=== PATIENT | female | born 1940 | race Caucasian/White ===

== ENCOUNTER → 2016-09-24 | Outpatient (CLI) | payer OTHER, MEDICARE | LOC: FIMAGING 15:21 | DX: Z12.31 Encounter for screening mammogram for malignant neoplasm of breast (principal) | CPT/HCPCS: G0202 ==

== ENCOUNTER → 2017-01-30 | Outpatient (CLI) | payer OTHER, MEDICARE | LOC: CIMAGING 16:48 | PROVIDERS: ATTEND Physician Assistant | DX: R22.1 Localized swelling, mass and lump, neck (principal) | CPT/HCPCS: 76536-PO ==

== ENCOUNTER → 2017-09-26 | Outpatient (CLI) | payer OTHER, MEDICARE | LOC: FIMAGING 08:37 | PROVIDERS: ATTEND Obstetrics & Gynecology Gynecology | DX: Z12.31 Encounter for screening mammogram for malignant neoplasm of breast (principal) ==

== ENCOUNTER → 2018-01-20 | Outpatient (CLI) | payer OTHER, MEDICARE | LOC: BHFA 14:30 | PROVIDERS: ATTEND Internal Medicine Cardiovascular Disease | DX: I48.91 Unspecified atrial fibrillation (principal) ==

== ENCOUNTER 2018-05-05 10:08 | Emergency (ER) | payer OTHER, MEDICARE ==
[2018-05-05] MEDS ORDERED: NS 1,000 ML IV ONE (10:44)
[2018-05-05 10:51] LABS: PLATELET COUNT 230 10^3/uL (150-400)
--- NOTE | 2018-05-05 10:52 | EDPHY ---
H & P Stated Complaint: TRANSIENT MEMORY DEFICITS LAST NIGHT AT 8PM LASTING FEW MINUTES Time Seen by Provider: 05/05/18 10:39 HPI/ROS: CHIEF COMPLAINT: TIA HISTORY OF PRESENT ILLNESS: The patient is a 78-year-old female with a history of lymphoma, chronic atrial fibrillation on Coumadin and previous TIAs. She thinks she had a TIA last night. She states that while she was doing the laundry she had trouble thinking clearly about where the clothes went. She then had trouble understanding had to choose a channel on the television. Her symptoms resolved after 5 or 10 min. She states that this is similar to previous TIA episodes. She was not concerned but today went to get a stress test with Dr. Fraga is office. They recommended she come to the ER. She was planning to get a neck your stress test because she has had easy fatigability with exertion over the last several months despite changes in her medications. She denies chest pain or shortness of breath today. She did not have any weakness or numbness or paralysis. No slurred speech. Severity: Moderate Modifying factors: Resolved REVIEW OF SYSTEMS: Constitutional: denies: chills, fever, recent illness, recent injury EENTM: denies: blurred vision, double vision, nose congestion Respiratory: denies: cough, shortness of breath Cardiac: denies: chest pain, irregular heart rate, lightheadedness, palpitations Gastrointestinal/Abdominal: denies: abdominal pain, diarrhea, nausea, vomiting, blood streaked stools Genitourinary: denies: dysuria, frequency, hematuria, pain Musculoskeletal: denies: joint pain, muscle pain Skin: denies: lesions, rash, jaundice, bruising Neurological: See HPI denies: headache, numbness, paresthesia, tingling, dizziness, weakness Hematologic/Lymphatic: denies: blood clots, easy bleeding, easy bruising Immunologic/allergic: denies: HIV/AIDS, transplant 10 systems reviewed and negative except as noted EXAM: GENERAL: Well-appearing, well-nourished and in no acute distress. HEAD: Atraumatic, normocephalic. EYES: Pupils equal round and reactive to light, extraocular movements intact, sclera anicteric, conjunctiva are normal. ENT: TMs normal, nares patent, oropharynx clear without exudates. Moist mucous membranes. NECK: Normal range of motion, supple without lymphadenopathy or JVD. LUNGS: Breath sounds clear to auscultation bilaterally and equal. No wheezes rales or rhonchi. HEART: Regular rate and rhythm without murmurs, rubs or gallops. ABDOMEN: Soft, nontender, normoactive bowel sounds. No guarding, no rebound. No masses appreciated. BACK: No CVA tenderness, no spinal tenderness, step-offs or deformities EXTREMITIES: Normal range of motion, no pitting or edema. No clubbing or cyanosis. NEUROLOGICAL: Cranial nerves II through XII grossly intact. Normal speech, normal gait. 5/5 strength, normal movement in all extremities, normal sensation , normal reflexes PSYCH: Normal mood, normal affect. SKIN: Warm, dry, normal turgor, no visible rashes or lesions. Source: Patient, Old records Exam Limitations: No limitations - Personal History Current Tetanus Diphtheria and Acellular Pertussis (TDAP): Yes - Medical/Surgical History Hx Asthma: No Hx Chronic Respiratory Disease: No Hx Diabetes: No Hx Cardiac Disease: Yes Hx Renal Disease: No Hx Cirrhosis: No Hx Alcoholism: No Hx HIV/AIDS: No Hx Splenectomy or Spleen Trauma: No Other PMH: lymphoma, afib TIA'S - Family History Significant Family History: No pertinent family hx - Social History Smoking Status: Former smoker Alcohol Use: Sober Drug Use: None Constitutional: Initial Vital Signs Temperature (C) 36.5 C 05/05/18 10:13 Heart Rate 87 05/05/18 10:13 Respiratory Rate 18 05/05/18 10:13 Blood Pressure 165/96 H 05/05/18 10:13 O2 Sat (%) 97 05/05/18 10:13 O2 Delivery Mode Room Air Allergies/Adverse Reactions: erythromycin base [Erythromycin Base] Allergy (Verified 12/29/15 14:10) Hives Penicillins Allergy (Verified 12/29/15 14:10) Scallops & Clams Allergy (Uncoded 12/29/15 14:10) Other-Enter Comments Home Medications: Medication Instructions Recorded Atorvastatin Calcium [Lipitor 20 20 mg PO DAILY 11/27/11 mg (RX)] Multivitamins [Multivitamin (OTC)] 1 tab PO DAILY 11/27/11 Warfarin Sodium [Coumadin (RX)] 7.5 mg PO DAILY 11/27/11 Metoprolol Succinate 05/05/18 Medical Decision Making - Diagnostics Imaging Results: Imaging Impressions Brain MRI 05/05/18 10:45 Impression: 1. Mild cerebral atrophy. 2. No acute infarct, acute hemorrhage, hydrocephalus, mass effect, or herniation. 3. A few nonspecific hyperintense T2/FLAIR signal abnormalities in the white matter of bilateral cerebral hemispheres. Differential diagnosis includes mild microvascular ischemic gliosis, versus less likely post-infectious/post- inflammatory sequela. 4. Mild sinusitis. Findings and recommendations discussed with Emergency Department physician, Dr. Buddy Raza at 1159 hours on May 05, 2018. Final report concurs with initial preliminary interpretation. Imaging: Discussed imaging studies w/ call or contact centre team leader Radiologist ED Course/Re-evaluation: 12:05 p.m. we discussed the patient's test results which are overall very reassuring. I suspect she did have a TIA. Her INRs therapeutic. She is rescheduled her stress test for next week. She is eager to go and declines further workup or testing. We discussed indications for returning. Differential Diagnosis: Partial list of the Differential diagnosis considered include but were not limited to; TIA, electrolyte disturbance, migraine, seizure and although unlikely based on the history and physical exam, I also considered trauma, infection. I discussed these differential diagnoses and the plan with the patient as well as the usual and expected course. The patient understands that the diagnosis is provisional and that in medicine we are not always correct and that further workup is often warranted. Usual and customary warnings were given. All of the patient's questions were answered. The patient was instructed to return to the emergency department should the symptoms at all worsen or return, otherwise to followup with the physician as we discussed. - Data Points Laboratory Results: Laboratory Results 05/05/18 10:20 05/05/18 10:20 05/05/18 05/05/18 05/05/18 10:54 10:20 10:20 WBC RBC Hgb Hct MCV MCH MCHC RDW Plt Count MPV Neut % (Auto) Lymph % (Auto) Hoke % (Auto) Eos % (Auto) Baso % (Auto) Nucleat RBC Rel Count Absolute Neuts (auto) Absolute Lymphs (auto) Absolute Monos (auto) Absolute Eos (auto) Absolute Basos (auto) Absolute Nucleated RBC Immature Gran % Immature Gran # PT 23.1 SEC H SEC (12.0-15.0) INR 2.04 H (0.83-1.16) APTT 33.0 SEC SEC (23.0-38.0) Sodium 139 mEq/L mEq/L (135-145) Potassium 4.3 mEq/L mEq/L (3.3-5.0) Chloride 101 mEq/L mEq/L (97-110) Carbon Dioxide 29 mEq/l mEq/l (22-31) Anion Gap 9 mEq/L mEq/L (8-16) BUN 17 mg/dL mg/dL (7-23) Creatinine 0.7 mg/dL mg/dL (0.6-1.0) Estimated GFR > 60 Glucose 91 mg/dL mg/dL (70-100) Calcium 9.6 mg/dL mg/dL (8.5-10.4) POC Troponin I 0.01 ng/mL ng/mL (0.00-0.08) 05/05/18 10:20 WBC 7.91 10^3/uL 10^3/uL (3.80-9.50) RBC 4.88 10^6/uL 10^6/uL (4.18-5.33) Hgb 16.4 g/dL H g/dL (12.6-16.3) Hct 48.9 % H % (38.0-47.0) MCV 100.2 fL H fL (81.5-99.8) MCH 33.6 pg pg (27.9-34.1) MCHC 33.5 g/dL g/dL (32.4-36.7) RDW 13.1 % % (11.5-15.2) Plt Count 230 10^3/uL 10^3/uL (150-400) MPV 12.4 fL H fL (8.7-11.7) Neut % (Auto) 60.3 % % (39.3-74.2) Lymph % (Auto) 25.4 % % (15.0-45.0) Hoke % (Auto) 11.6 % % (4.5-13.0) Eos % (Auto) 1.5 % % (0.6-7.6) Baso % (Auto) 0.8 % % (0.3-1.7) Nucleat RBC Rel Count 0.0 % % (0.0-0.2) Absolute Neuts (auto) 4.77 10^3/uL 10^3/uL (1.70-6.50) Absolute Lymphs (auto) 2.01 10^3/uL 10^3/uL (1.00-3.00) Absolute Monos (auto) 0.92 10^3/uL H 10^3/uL (0.30-0.80) Absolute Eos (auto) 0.12 10^3/uL 10^3/uL (0.03-0.40) Absolute Basos (auto) 0.06 10^3/uL 10^3/uL (0.02-0.10) Absolute Nucleated RBC 0.00 10^3/uL 10^3/uL (0-0.01) Immature Gran % 0.4 % % (0.0-1.1) Immature Gran # 0.03 10^3/uL 10^3/uL (0.00-0.10) PT INR APTT Sodium Potassium Chloride Carbon Dioxide Anion Gap BUN Creatinine Estimated GFR Glucose Calcium POC Troponin I Medications Given: Discontinued Medications Sodium Chloride (Ns) 1,000 mls @ 500 mls/hr IV EDNOW ONE PRN Reason: Protocol Stop: 05/05/18 12:43 Last Admin: 05/05/18 11:44 Dose: 1,000 mls Point of Care Test Results: Chemistry 05/05/18 10:54 POC Troponin I 0.01 ng/mL ng/mL (0.00-0.08) Departure - Departure Disposition: Home, Routine, Self-Care Clinical Impression: Transient cerebral ischemia Qualifiers: Transient cerebral ischemia type: unspecified Qualified Code(s): G45.9 - Transient cerebral ischemic attack, unspecified Condition: Fair Instructions: Transient Ischemic Attack (ED) Referrals: JENNIFER HERRERA [Primary Care Provider] - As per Instructions
[2018-05-05 10:53] LABS: INR 2.04 (0.83-1.16); PROTIME(PATIENT) 23.1 SEC (12.0-15.0)
[2018-05-05 12:22] VITALS: BP 140/71
== END 2018-05-05 12:22 | disposition home or self-care (01) ==
DX: G45.9 Transient cerebral ischemic attack, unspecified (principal); E86.9 Volume depletion, unspecified; I48.2 Chronic atrial fibrillation; Z79.01 Long term (current) use of anticoagulants; Z86.73 Personal history of transient ischemic attack (TIA), and cerebral infarction without residual deficits
CPT/HCPCS: 84484-PO

== ENCOUNTER 2018-05-07 16:26 | Emergency (ER) | payer OTHER, MEDICARE ==
--- NOTE | 2018-05-07 17:07 | EDPHY ---
H & P Stated Complaint: memory issue Time Seen by Provider: 05/07/18 16:37 HPI/ROS: CHIEF COMPLAINT: TIA HISTORY OF PRESENT ILLNESS: 78-year-old female with atrial fibrillation on Coumadin presents with a chief complaint of TIA. At 1400 today, she had some memory issues and could not remember where she was or where she was going. She continues to feel somewhat fussy, but her memory has improved. No weakness, numbness or change in speech. She feels that the symptoms are similar to prior episodes of TIAs. She was seen in this emergency department on 05/05/2018 for similar symptoms. MRI of the brain revealed no acute infarct. She feels that the episodes may be related to a new prescription for metoprolol. REVIEW OF SYSTEMS: complete 10 point ROS reviewed and is negative except for the noted elements in the HPI - Personal History Current Tetanus/Diphtheria Vaccine: Yes Current Tetanus Diphtheria and Acellular Pertussis (TDAP): Yes - Medical/Surgical History Hx Asthma: No Hx Chronic Respiratory Disease: No Hx Diabetes: No Hx Cardiac Disease: Yes Hx Renal Disease: No Hx Cirrhosis: No Hx Alcoholism: No Hx HIV/AIDS: No Hx Splenectomy or Spleen Trauma: No Other PMH: lymphoma, afib TIA'S - Social History Smoking Status: Former smoker - Physical Exam Exam: General Appearance: Alert, pleasant Eyes: Pupils equal and round, no conjunctival pallor or injection ENT, Mouth: Mucous membranes moist Neck: Normal inspection Respiratory: Lungs are clear to auscultation Cardiovascular: Irregularly irregular tachycardia, rate 100-110 Gastrointestinal: Abdomen is soft and nontender Neurological: Alert, oriented x3, cranial nerves II through XII intact, motor 5 /5, sensory intact to light touch, normal gait Skin: Warm and dry, no rash Extremities: Nontender, no pedal edema Psychiatric: Mood and affect normal Constitutional: Initial Vital Signs Temperature (C) 36.7 C 05/07/18 16:39 Heart Rate 115 H 05/07/18 16:39 Respiratory Rate 15 05/07/18 16:39 O2 Sat (%) 94 05/07/18 16:39 O2 Delivery Mode Room Air Allergies/Adverse Reactions: erythromycin base [Erythromycin Base] Allergy (Verified 12/29/15 14:10) Hives Penicillins Allergy (Verified 12/29/15 14:10) Scallops & Clams Allergy (Uncoded 12/29/15 14:10) Other-Enter Comments Home Medications: Medication Instructions Recorded Atorvastatin Calcium [Lipitor 20 20 mg PO DAILY 11/27/11 mg (RX)] Multivitamins [Multivitamin (OTC)] 1 tab PO DAILY 11/27/11 Warfarin Sodium [Coumadin (RX)] 7.5 mg PO DAILY 11/27/11 Metoprolol Succinate 05/05/18 Medical Decision Making - Diagnostics EKG Interpretation: EKG interpreted by me reveals atrial fibrillation, ventricular rate 102, no ST or T segment changes. Interpretation abnormal EKG ED Course/Re-evaluation: This patient presents with intermittent memory problems. Neurologic exam is normal and there are no concerning signs or symptoms suggestive of a TIA/CVA. Neuro imaging is not indicated today. The symptoms have been ongoing for some time. Recent MRI for similar sx was unremarkable. EKG reveals atrial fibrillation, ventricular rate 100-115. Patient encouraged to take metoprolol in ED, but declines, stating she will take metoprolol when she gets home. She has self-lowered her metoprolol dose to 25mg daily because she thinks it's causing memory issues. Declines admission. She will follow up with Dr. Moody in the office for cognitive testing. Differential Diagnosis: Altered mental status including but not limited to hypoglycemia, infectious process, electrolyte abnormality, head injury, TIA, CVA, and intoxicants. - Data Points Laboratory Results: Laboratory Results 05/07/18 16:52 05/07/18 16:52 Point of Care Test Results: Chemistry 05/07/18 17:10 POC Troponin I 0.00 ng/mL ng/mL (0.00-0.08) Departure - Departure Disposition: Home, Routine, Self-Care Clinical Impression: Memory problem Condition: Good Instructions: Additional Information Referrals: Alex Moody MD [Medical Doctor] - As per Instructions Brandyn Fraga MD [Medical Doctor] - As per Instructions (Call to make an appointment.)
[2018-05-07 17:13] LABS: PLATELET COUNT 230 10^3/uL (150-400)
[2018-05-07 17:26] LABS: INR 2.11 (0.83-1.16); PROTIME(PATIENT) 23.7 SEC (12.0-15.0)
[2018-05-07 18:04] VITALS: BP 156/84
--- NOTE | 2018-05-07 19:36 | CPEKG ---
Test Reason : OPEN Blood Pressure : / mmHG Vent. Rate : 102 BPM Atrial Rate : 323 BPM P-R Int : 057 ms QRS Dur : 076 ms QT Int : 380 ms P-R-T Axes : 105 084 051 degrees QTc Int : 496 ms Atrial flutter Borderline right axis deviation Borderline prolonged QT interval Confirmed by Helen Valentino ([id number]) on 05/07/2018 7:36:31 PM Referred By: Confirmed By:Helen Valentino
== END 2018-05-07 18:03 | disposition home or self-care (01) ==
DX: G31.84 Mild cognitive impairment of uncertain or unknown etiology (principal); Z79.01 Long term (current) use of anticoagulants; Z87.891 Personal history of nicotine dependence
CPT/HCPCS: 78452; 93005; 93017; 99283; A9500; J2785; 84484-PO

== ENCOUNTER → 2018-06-01 | Outpatient (CLI) | payer OTHER, MEDICARE | LOC: BHFA 10:00 | PROVIDERS: ATTEND Internal Medicine Cardiovascular Disease | DX: G45.9 Transient cerebral ischemic attack, unspecified (principal) | CPT/HCPCS: 93880-PO ==

== ENCOUNTER → 2018-10-28 | Outpatient (CLI) | payer OTHER, MEDICARE | LOC: FIMAGING 10:00 | PROVIDERS: ATTEND Obstetrics & Gynecology Gynecology | DX: Z12.31 Encounter for screening mammogram for malignant neoplasm of breast (principal); Z80.3 Family history of malignant neoplasm of breast ==